=== PATIENT | female | born 1945 | race Caucasian/White ===

== ENCOUNTER 2020-03-05 02:11 | Observation (INO) ==
[2020-03-05] MEDS ORDERED: DEXTROSE 50% 25 GM/50 ML SYRINGE IV PRN (04:27)
[2020-03-05] MEDS ORDERED: ACETAMINOPHEN 325 MG TABLET PO PRN (04:27)
[2020-03-05] MEDS ORDERED: ONDANSETRON 4 MG/2 ML VIAL IV PRN (04:27)
[2020-03-05] MEDS ORDERED: GLUCAGON 1 MG VIAL IM PRN (04:27)
[2020-03-05] MEDS ORDERED: dilTIAZem Drip 125 MG/125 ML PREMIX IV SCH (04:30)
[2020-03-05] MEDS ORDERED: ENOXAPARIN 40 MG/0.4 ML SYRINGE SUBCUT SCH (04:30)
[2020-03-05] MEDS ORDERED: MELATONIN 3 MG TABLET PO PRN (05:34)
[2020-03-05] MEDS ORDERED: ENOXAPARIN 60 MG/0.6 ML SYRINGE SUBCUT SCH (06:00)
[2020-03-05] MEDS ORDERED: dilTIAZem Drip 125 MG/125 ML PREMIX IV ONE (06:23)
[2020-03-05 06:49] LABS: Basophils % 0.4 % (0.0-0.8); Eosinophils # 0.2 10*3/uL (0.0-0.87); Eosinophils % 2.7 % (0.00-10.9); Hemoglobin 13.5 GM/DL (12.0-16.0); Immature Granulocytes % 0.4 %; Immature Granulocytes Absolute 0.03 #; Lymphocytes # 2.1 10*3/uL (1.4-4.0); Lymphocytes % 30.5 % (21.3-54.2); Mean Corpuscular HGB Conc 32.9 GM/DL (32-36); Mean Corpuscular Volume 86.9 FL (87-102); Mean Platelet Volume 11.1 FL (9.6-12.0); Monocytes % 9.5 % (1.7-12.7); Neutrophils % 56.5 % (38.7-73.9); Platelet Count 157 T/CUMM (130-400); Red Blood Count 4.72 MC/CUMM (3.8-5.5); Red Cell Distribution Width 12.6 % (9.3-17.3); White Blood Count 6.7 T/CUMM (4-12)
[2020-03-05 07:38] LABS: Alanine Aminotransferase 21 U/L (13-56); Albumin 3.8 G/DL (3.4-5.0); Alkaline Phosphatase 80 U/L (45-117); Aspartate Amino Transferase 16 U/L (0-37); Bilirubin,Total < 0.39 MG/DL (0.2-1.0); Blood Urea Nitrogen 19 MG/DL (7-18); Calcium 9.8 MG/DL (8.5-10.1); Estimated Glom Filtration Rate 63 ML/MIN; Glucose 107 MG/DL (74-106); Osmolality,Calculated 276.7 MOS/KG (273-304); Total Protein 7.5 G/DL (6.4-8.3)
[2020-03-05 08:07] LABS: Risk Ratio 3.26; VLDL CHOLESTEROL 15.6 MG/DL
[2020-03-05] MEDS ORDERED: hydroCHLOROthiazide 12.5 MG CAPSULE PO SCH (09:00)
[2020-03-05] MEDS ORDERED: PANTOPRAZOLE 40 MG TABLET PO SCH (09:00)
[2020-03-05] MEDS ORDERED: METOPROLOL TARTRATE 25 MG TABLET PO ONE (09:42)
[2020-03-05] MEDS ORDERED: ASCORBIC ACID 500 MG TABLET PO SCH (10:00)
[2020-03-05 12:53] VITALS: BP 112/74
[2020-03-05] MEDS ORDERED: METOPROLOL TARTRATE 25 MG TABLET PO SCH (21:00)
[2020-03-05] MEDS ORDERED: ROSUVASTATIN 20 MG TABLET PO SCH (21:00)
[2020-03-05] MEDS ORDERED: ZOLPIDEM 5 MG TABLET PO SCH (21:00)
[2020-03-05] MEDS ORDERED: APIXABAN 5 MG TABLET PO SCH (21:00)
[2020-03-05] MEDS ORDERED: lisinopriL 20 MG TABLET PO SCH (21:00)
== END 2020-03-05 14:44 | disposition home or self-care (01) ==
LOC: N.TELES 03:48 → INTOOBSV 03:48 → SUATTDRO 03:48
PROVIDERS: ADMIT Internal Medicine; ATTEND Emergency Medicine